=== PATIENT | female | born 1985 | race Caucasian/White ===

== ENCOUNTER 2024-09-20 12:20 | Emergency (ER) | payer OTHER ==
[~2024-09-20] VITALS: Ht 167.6 cm; Wt 80.0 kg
[2024-09-20 12:31] VITALS: PULSE 87; RESP 16; O2SAT 100
[2024-09-20 12:37] VITALS: BP 119/77; TEMP 36.9; O2SAT 98
[2024-09-20] MEDS ORDERED: CEPH250T MT (13:26)
[2024-09-20 13:54] LABS: CLARITY URINE CLOUDY (CLEAR); COLOR URINE YELLOW (YELLOW); GLUCOSE URINE NEGATIVE (NEGATIVE); KETONES URINE NEGATIVE (NEGATIVE); LEUKOCYTE ESTERASE URINE 3+ (NEGATIVE); NITRITE URINE NEGATIVE (NEGATIVE); OCCULT BLOOD URINE 2+ (NEGATIVE); PH URINE 6.5 (4.5-8.0); PROTEIN URINE NEGATIVE (NEGATIVE); SPECIFIC GRAVITY URINE 1.007 (1.005-1.030)
[2024-09-20 14:07] LABS: SQUAMOUS EPITHELIAL CELL URINE 2+ /lpf (RARE/1+); WBC URINE TNTC /hpf (0-2); YEAST URINE NONE SEEN
[2024-09-20 14:08] LABS: BACTERIA URINE 1+
== END 2024-09-20 14:51 | disposition home or self-care (01) ==
LOC: ER 12:20
DX: O23.41 Unspecified infection of urinary tract in pregnancy, first trimester (principal); Z3A.10 10 weeks gestation of pregnancy
CPT/HCPCS: 81003; 81025; 99283